=== PATIENT | female | born 1955 | race Hispanic/Latino ===

== ENCOUNTER → 2023-03-21 | Outpatient (CLI) | payer MEDICARE ==
[2023-03-21 12:20] LABS: CREATININE 0.6 mg/dL (0.5-1.5)
== END | disposition home or self-care (01) ==
LOC: LAB 09:01
PROVIDERS: ATTEND Student in an Organized Health Care Education/Training Program
DX: I73.9 Peripheral vascular disease, unspecified (principal); E78.5 Hyperlipidemia, unspecified
CPT/HCPCS: 36415; 82565; 84520

== ENCOUNTER → 2023-04-02 | Outpatient (CLI) | payer MEDICARE ==
[~2023-04-02] MED LIST: IOHEXOL 350 MG/ML 100ML INFUS..BTL IV ONE
== END | disposition home or self-care (01) ==
LOC: RAH 09:20
PROVIDERS: ATTEND Student in an Organized Health Care Education/Training Program
DX: R07.9 Chest pain, unspecified (principal)
CPT/HCPCS: 75574; Q9967

== ENCOUNTER → 2024-02-20 | Outpatient (CLI) | payer MEDICARE ==
[~2024-02-20] MED LIST changes: +AEC81 PO; +ATOR40TA71 PO; +CILO100T3 PO; +CLOP75TA32 PO; +FOLIC ACID PO; -IOHEXOL 350 MG/ML 100ML INFUS..BTL IV ONE; +MIDO10TA PO; +SITA1TAB6 PO; +VITAMIN B12 PO
== END | disposition home or self-care (01) ==
LOC: RAH 12:04
PROVIDERS: ATTEND Student in an Organized Health Care Education/Training Program
DX: I35.0 Nonrheumatic aortic (valve) stenosis (principal); R07.89 Other chest pain; Z95.1 Presence of aortocoronary bypass graft
CPT/HCPCS: 93306

== ENCOUNTER → 2024-03-06 | Outpatient (CLI) | payer MEDICARE | END | disposition home or self-care (01) | LOC: SHCH 09:25 | PROVIDERS: ATTEND Student in an Organized Health Care Education/Training Program | DX: I70.203 Unspecified atherosclerosis of native arteries of extremities, bilateral legs (principal); I82.493 Acute embolism and thrombosis of other specified deep vein of lower extremity, bilateral; M79.89 Other specified soft tissue disorders | CPT/HCPCS: 93925; 93970 ==

== ENCOUNTER 2025-02-26 08:19 | Day surgery (SDC) | payer MEDICARE, MEDICAID ==
[2025-02-24 10:43] LABS: APPEARANCE,URINE CLEAR (CLEAR); BILIRUBIN,URINE NEGATIVE (NEGATIVE); COLOR,URINE LIGHT-YELLOW (YELLOW); GLUCOSE, URINE (UA) NEGATIVE (NEGATIVE); KETONES,URINE NEGATIVE (NEGATIVE); LEUKOCYTE ESTERASE ,URINE NEGATIVE Leu/uL (NEGATIVE); NITRATE,URINE NEGATIVE (NEGATIVE); OCCULT BLOOD,URINE NEGATIVE (NEGATIVE); PH,URINE 5.5 (5.0-8.0); PROTEIN,URINE NEGATIVE (NEGATIVE); UROBILINOGEN,URINE 0.2 mg/dL (0.2-1.0)
[2025-02-24 10:45] LABS: CREATININE 0.8 mg/dL (0.5-1.0); POTASSIUM 4.1 mmol/L (3.5-5.1)
[2025-02-24 10:46] LABS: ADD UA MICROSCOPIC NO
[2025-02-24 10:48] LABS: INR 0.94 (0.85-1.15)
--- NOTE | 2025-02-24 10:48 | EKG ---
[facility] Test Date: 2025-02-24 Test Time: 10:22:09 Pat Name: ARTIE BUTLER Department: [facility] Room: Gender: F Direct Marketing Executive: [id number] : 1955 Requested By: MARY WILLIAMSON Order Number: [id number] Reading MD: Arsalan Gimenez Measurements Intervals [place] Rate: 62 P: 55 AK: 165 QRS: 40 QRSD: 88 T: 146 QT: 423 QTc: 431 Interpretive Statements Sinus rhythm Anterior infarct, old Abnormal T, consider ischemia, lateral leads Compared to ECG 06/24/2023 12:15:05 Myocardial infarct finding now present T-wave abnormality now present Sinus tachycardia no longer present Ventricular premature complex(es) no longer present ST (T wave) deviation no longer present Possible ischemia still present Electronically Signed On 02-24-2025 13:32:17 CDT by Arsalan Gimenez Please click the below link to view image of tracing.
[2025-02-24 10:50] VITALS: BP 129/70; PULSE 60; RESP 17; TEMP 97.5
[2025-02-24 10:50] LABS: PARTIAL THROMBOPLASTIN TIME 22.4 SEC (26.3-35.5)
[2025-02-24 11:19] LABS: BASOPHILS # (AUTO) 0.08 K/uL (0.00-0.20); BASOPHILS % (AUTO) 1.1 % (0.0-5.0); EOSINOPHILS # (AUTO) 0.13 K/uL (0.00-0.70); EOSINOPHILS % (AUTO) 1.8 % (0.0-8.0); HEMATOCRIT 37.5 % (36-48); IMMATURE GRANULOCYTE ABSOLUTE 0.02 K/uL (0-1); LYMPHOCYTES # (AUTO) 2.4 K/uL (1.0-4.8); LYMPHOCYTES % (AUTO) 33.1 % (21.0-51.0); MEAN CORPUSCULAR HEMOGLOBIN 29.5 pg (27.0-33.0); MEAN CORPUSCULAR HGB CONC 33.1 g/dL (32.0-36.0); MEAN CORPUSCULAR VOLUME 89.3 fL (79-99); MONOCYTES # (AUTO) 0.4 K/uL (0.1-1.0); MONOCYTES % (AUTO) 5.8 % (3.0-13.0); NEUTROPHILS # (AUTO) 4.2 K/uL (1.8-7.7); NEUTROPHILS % (AUTO) 57.9 % (40.0-77.0); PLATELET COUNT (AUTO) 200 K/uL (130-400); RED CELL DISTRIBUTION WIDTH 13.3 % (11.0-15.5); WHITE BLOOD COUNT (AUTO) 7.2 K/uL (4.8-10.8)
[2025-02-24 11:42] LABS: B-TYPE NATRIURETIC PEPTIDE 44 pg/mL (0-100)
[2025-02-26] VITALS (11 sets, daily range): BP systolic 95–119; BP diastolic 55–65; PULSE 53–69; RESP 11–18; TEMP 97.2–97.5
[~2025-02-26] VITALS: Ht 157.5 cm; Wt 66.4 kg
[~2025-02-26 08:19] MED LIST changes: -MIDO10TA PO; +MIDO10TA3 PO
[2025-02-26] MEDS: 0.9%NACL 1000ML 1,000 ML IV SCH (09:02)
[2025-02-26] MEDS ORDERED: LIDOCAINE HCL 400MG/20ML VIAL ONE (09:24)
[2025-02-26] MEDS ORDERED: HEParin 10,000 UNIT/10ML (1,000 UNIT/ML) VIAL ONE (09:24)
[2025-02-26] MEDS ORDERED: IODIXANOL 320 MG/ML 100 ML VIAL ONE (09:24)
[2025-02-26] MEDS ORDERED: NITROGLYCERIN 50MG VIAL ONE (09:25)
[2025-02-26] MEDS ORDERED: HEParin-NS 1,000 UNIT/500 ML 1,000 ML IV ONE (09:25)
[2025-02-26] MEDS ORDERED: METO-408 PO (09:31)
[2025-02-26] MEDS ORDERED: FERR324T4 PO (09:31)
[2025-02-26] MEDS ORDERED: FAMO40TA7 PO (09:31)
[2025-02-26] MEDS ORDERED: GLIP2.5T17 PO (09:31)
[2025-02-26] MEDS ORDERED: FENTanyl CITRate PF 50 MCG/1 ML 2ML VIAL ONE (09:52)
[2025-02-26] MEDS ORDERED: MIDAZOLAM HCL 1 MG/ML 2ML VIAL ONE ×2 (09:52→10:28)
--- NOTE | 2025-02-26 11:25 | PRN ---
PERIPHERAL ANGIOGRAM: ATTENDING: Rikki Veloz MD DATE: 02/26/2025 INDICATION: Resting claudication Severe b/l LE PAD Abnormal LE arterial Dopplers PROCEDURE: Conscious sedation Ultrasound-guided left common femoral arterial access Left iliofemoral angiogram Abdominal aortogram Nonselective right lower extremity angiogram with runoff Manual pressure hemostasis of the left common femoral artery PROCEDURE DETAILS: Following informed consent the patient was taken to the earthmoving labourer in the fasting state condition where she was draped and sterilized in usual fashion. Access was obtained via the left common femoral artery under ultrasound guidance with 1st while pass puncture. We placed a five [place] arterial sheath in the left common femoral artery which was then aspirated and flushed and we then performed a left iliofemoral angiogram to delineate her anatomy. We then advanced an 035 wire into the distal abdominal aorta under fluoroscopic guidance followed by a five [place] omni catheter which was advanced in the distal abdominal aorta performing an abdominal aortogram. Given patient's significant right common iliac stenosis we are unable to advance any catheters beyond this and we performed a nonselective right lower extremity angiogram with runoff. Following review of the films decision was made to terminate the procedure all wires and catheters removed from the body and manual pressure was obtained of the left common femoral artery with patent hemostasis. Patient tolerated procedure well with no postprocedure complications and was transferred to earthmoving labourer holding in stable condition. 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 External iliac is patent with luminal irregularities. Internal iliac is heavily calcified with moderate diffuse disease Common femoral arterial artery has two focal calcified lesions of 99% and 90%. The profunda is patent proximally and SFA is diffusely diseased becoming a AUT[employer] SERVICE ADVISOR proximally Patient has a left BKA we do not performed infrapopliteal angiogram RIGHT: Common iliac is heavily calcified with severe 95-90% proximal stenosis. External iliac heavily calcified with ostial 90% stenosis Internal iliac is heavily calcified with 90% diffuse stenosis Common femoral artery heavily calcified with a focal 99% stenosis Superficial femoral artery is heavily calcified with 100% prox to mid to distal [employer] SERVICE ADVISOR and reconstitutes at the popliteal artery via the profunda The profunda artery is patent and diffusely calcified and provides collateral flow to the popliteal and infrapopliteal vessel Popliteal artery is patent and diffusely calcified with mild 20-30% disease Anterior tibial artery has 90-95% ostial stenosis and reconstitutes in the prox to mid segment with patent flow to the foot Tibioperoneal trunk diffuse 50-60% stenosis. Posterior tibial artery is 100% AUTOMOBILE SERVICE ADVISOR proximally and does not reconstitute distally Peroneal artery is patent to the foot Pedal arch is incomplete RECOMMENDATIONS: Severe right lower extremity PID not amenable to catheter based revascularization We will consult CV surgery for consideration of right lower extremity bypass Groin precautions and bedrest for 4-6 hours and provide 125 mL of normal saline for 4 hours Diet/exercise and aggressive lifestyle modifications and smoking cessation Continue aspirin 81 mg daily and Plavix 75 mg daily and high-intensity statin therapy CONTRAST: 120ml COMPLICATIONS: None MD CLAY Le JAMES R MD Feb 26, 2025 11:25
[2025-02-26] MEDS ORDERED: DEXTROSE 50%-WATER 50 ML DISP.SYRIN IV PRN (11:30)
[2025-02-26] MEDS ORDERED: 0.9%NACL 1000ML 1,000 ML IV SCH (11:30)
[2025-02-26] MEDS ORDERED: GLUCAGON 1MG KIT 1 MG ML IM PRN (11:30)
--- NOTE | 2025-02-26 15:37 | NUR ---
Lexus VELIZ with cardiovascular consult made aware of pt consult, states not able to see pt but will see them in clinic as outpatient.
== END 2025-02-26 16:00 | disposition home or self-care (01) ==
LOC: DAH 08:19
PROVIDERS: ATTEND Student in an Organized Health Care Education/Training Program
DX: E11.51 Type 2 diabetes mellitus with diabetic peripheral angiopathy without gangrene (principal); I70.213 Atherosclerosis of native arteries of extremities with intermittent claudication, bilateral legs; I25.10 Atherosclerotic heart disease of native coronary artery without angina pectoris; E78.5 Hyperlipidemia, unspecified; I11.9 Hypertensive heart disease without heart failure; I35.0 Nonrheumatic aortic (valve) stenosis; I25.83 Coronary atherosclerosis due to lipid rich plaque; Z89.612 Acquired absence of left leg above knee; Z90.49 Acquired absence of other specified parts of digestive tract; Z90.710 Acquired absence of both cervix and uterus; Z95.1 Presence of aortocoronary bypass graft; Z79.01 Long term (current) use of anticoagulants; Z98.890 Other specified postprocedural states; Z79.82 Long term (current) use of aspirin; Z79.899 Other long term (current) drug therapy
CPT/HCPCS: 80048; 83880; 85025; 85610; 85730; 81003; 36415; 93005; 75630; 36200; 99156; 99157 ×3; 82948 ×2; C1894 ×3; C1760; C1769 ×2; J3010; J3490 ×2; J7030; J1644 ×2; J2250 ×2; Q9967; A4215; A4222; A4221; A4663; A4216; A4606; A4223 ×3; 36247; 75716; 96360; 96361

== ENCOUNTER → 2025-07-13 | Outpatient (CLI) | payer MEDICARE ==
[~2025-07-13] MED LIST changes: -CLOP75TA32 PO; +FAMO40TA7 PO; +FERR324T4 PO; +GLIP2.5T17 PO; +METO-408 PO
--- NOTE | 2025-07-25 06:32 | HMCIMG ---
CLINICAL INDICATION: Asymptomatic menopausal state COMPARISON: None available TECHNIQUE: Bone densitometry is performed of the lumbar spine and left hip. FINDINGS: Total BMD of lumbar spine is 0.8-0 g/cm2 with a T-score of -2.1 and Z-score is -0.1. Total BMD of left hip is 0.580 g/cm2 with a T-score of -2.9 and Z-score is -1.6. FRAX SCORE: The 10 year fracture risk for a major osteoporotic fracture and hip fracture not reported due to T score at or below -2.5 IMPRESSION: 1. Osteoporosis left hip 2. Osteopenia lumbar spine 3. I would recommend follow-up in 13 months World Health Organization criteria for BMD interpretation classify patients as Normal (T-score at or above -1.0), Osteopenic (T-score between -1.0 and -2.5), or Osteoporotic (T-score at or below -2.5). FRAX SCORE: A. All treatment decisions require clinical judgment and consideration of individual patient factors, including patient preferences, comorbidities, previous drug use, risk factors not captured in the FRAX model (e.g., frailty, falls, vitamin D deficiency, increased bone turnover, interval significant decline in bone density) and possible [id number]-estimation of fracture risk by FRAX. B. In addition, the NOF Guide recommends that FDA-approved medical therapies be considered in postmenopausal women and men age greater than or equal to 50 years with a: i. Hip or vertebral (clinical or morphometric) fracture. ii. T-score of less than or equal to -2.5 at the spine or hip. iii. Ten-year fracture probability by FRAX of greater than or equal to 3% for hip fracture of greater than or equal to 20% for major osteoporotic fracture.
== END | disposition home or self-care (01) ==
LOC: RAH 09:39
PROVIDERS: ATTEND Family Medicine
DX: M81.0 Age-related osteoporosis without current pathological fracture (principal); M85.88 Other specified disorders of bone density and structure, other site; Z78.0 Asymptomatic menopausal state
CPT/HCPCS: 77080